=== PATIENT | male | born 1935 | race Caucasian/White ===

== ENCOUNTER 2019-02-06 09:50 | Emergency (ER) | payer SELFPAY ==
[~2019-02-06] VITALS: Ht 172.7 cm; Wt 76.2 kg
[2019-02-06 09:55] VITALS: BP 125/69
[2019-02-06] MEDS ORDERED: ALBUTEROL SULFATE/IPRATROPIU 3 ML SOL IH ONE (10:10)
[2019-02-06] MEDS ORDERED: methylPREDNISolone SS 125 MG/2 ML VIAL IVP ONE (10:10)
[2019-02-06] MEDS ORDERED: diphenhydrAMINE 50 MG/ML VIAL IVP ONE (10:10)
[2019-02-06] MEDS ORDERED: NACL 0.9% 1,000 ML IV ONE (10:10)
--- NOTE | 2019-02-06 10:15 | NUR ---
[facility] DRUG GIVEN ORDERED ENCOURAGED PATIENT FOR INTERMITTENT DEEP BREATHING DURING THERAPY
--- NOTE | 2019-02-06 10:17 | NUR ---
RADIOLOGY AT BEDSIDE
--- NOTE | 2019-02-06 10:20 | NUR ---
RT AT [facility].
--- NOTE | 2019-02-06 10:25 | NUR ---
PT ARRIVED TO ED C/O ALLERGIC REACTION S/P DRINKING SOY MILK X 2HR AGO. PT DOESNT HAVE PAIN. PT STATES ITCHINGNALL OVER UPPER BODY. HAS RASH ALL OVER UPPER BODY /TORSO AREA. RESP CLEAR THROUGHOUT. NO RESP DISTRESS. ON 4L NC. SPO2 96%. AIRWAY CLEAR. CLEAR SPEECH. A&O X4 ALLERGIES: SULFA DRUGS.
[2019-02-06 10:42] LABS: BASOPHILS % (AUTO) 0.2 % (0.0-2.0); EOSINOPHILS # (AUTO) 0.1 K/uL (0-0.4); EOSINOPHILS % (AUTO) 1.9 % (0.0-4.0); HEMATOCRIT 42.4 % (36-52); HEMOGLOBIN 13.8 g/dL (12.0-18.0); LYMPHOCYTES % (AUTO) 31.6 % (20.5-51.1); MEAN CORPUSCULAR HEMOGLOBIN 30 pg (27-31); MEAN CORPUSCULAR HGB CONC 33 g/dL (33-37); MEAN CORPUSCULAR VOLUME 91.6 fL (80-94); MONOCYTES # (AUTO) 0.4 K/uL (0.8-1.0); MONOCYTES % (AUTO) 6.4 % (1.7-9.3); NEUTROPHILS # (AUTO) 3.8 K/uL (1.8-7.7); NEUTROPHILS % (AUTO) 59.9 % (42.2-75.2); PLATELET COUNT (AUTO) 231 K/uL (140-450); RED BLOOD CELL COUNT(AUTO) 4.63 MIL/uL (4.20-6.10); WHITE BLOOD COUNT (AUTO) 6.3 K/uL (4.8-10.8)
[2019-02-06 10:54] LABS: ANION GAP 11.6 (8-16); CARBON DIOXIDE 22.3 mmol/L (21-32); CHLORIDE 105 mmol/L (98-107); GLUCOSE 142 mg/dL (74-106); POTASSIUM 3.9 mmol/L (3.5-5.1); SODIUM SERUM 135 mmol/L (136-145); UREA NITROGEN, BLOOD 21 mg/dL (7-18)
[2019-02-06 11:00] LABS: ALBUMIN 3.3 g/dL (3.4-5.0); ASPARTATE AMINOTRANSFERASE 23 U/L (15-37); TOTAL BILIRUBIN 1.1 mg/dL (0.0-1.0)
[2019-02-06 11:05] LABS: PROTHROMBIN TIME 10.4 secs (10.8-13.4)
[2019-02-06 12:10] VITALS: BP 125/69
--- NOTE | 2019-02-06 12:10 | NUR ---
Patient discharged with v/s stable. Written and verbal after care instructions given and explained. Patient alert, oriented and verbalized understanding of instructions. Ambulatory with steady gait. All questions addressed prior to discharge. ID band removed. Patient advised to follow up with PMD. Rx of BENADRYL AND PREDNISONE given. Patient educated on indication of medication including possible reaction and side effects. Opportunity to ask questions provided and answered.
== END 2019-02-06 11:50 | disposition home or self-care (01) ==
LOC: MED 09:50
DX: T78.1XXA Other adverse food reactions, not elsewhere classified, initial encounter (principal); R06.02 Shortness of breath; R21 Rash and other nonspecific skin eruption; Z91.018 Allergy to other foods; X58.XXXA Exposure to other specified factors, initial encounter
CPT/HCPCS: 36415; 71045; 80053; 84484; 85025; 85379; 85610; 85730; 94640; 96374; 96375; 99284; J1200; J2930; J7030; J7620; Q0092